=== PATIENT | female | born 1995 | race Asian ===

== ENCOUNTER 2016-12-07 17:45 | Emergency (ER) | payer OTHER ==
[~2016-12-07] VITALS: Ht 147.3 cm; Wt 52.6 kg
[~2016-12-07 17:45] MED LIST: PROMETHAZINE HC25 M3 PO; VICODIN5-300 PO; ZANTAC150 M1 PO; ZOFRAN4 M1 SL
[2016-12-07] MEDS ORDERED: PRENATAL TABLE1 EAC2 PO (18:12)
[2016-12-07 18:49] LABS: ABSOLUTE BASOPHIL COUNT 0 /CUMM (0.0-0.2); ABSOLUTE EOSINOPHIL COUNT 0 /CUMM (0.0-0.7); ABSOLUTE GRANULOCYTE CT 7.5 /CUMM (1.4-6.5); ABSOLUTE LYMPH COUNT 1.3 /CUMM (1.2-3.4); ABSOLUTE MONOCYTE COUNT 0.5 /CUMM (0.10-0.60); BASOPHIL % 0.4 % (0.0-2.0); EOSINOPHIL % 0.4 % (0-5); GRANULOCYTE % 80.6 % (42.2-75.2); HEMATOCRIT 32.4 % (37-47); MEAN CORPUSCULAR HGB 30.5 PG (27.0-31.0); MEAN CORPUSCULAR VOLUME 89.9 FL (81.0-99.0); MEAN PLATELET VOLUME 8.4 FL (7.4-10.4); PLATELET COUNT 252 /CUMM (130-400); RBC DISTRIBUTION WIDTH 13.4 % (11.5-14.5); RED BLOOD CELL CT 3.61 /CUMM (4.20-5.40); WHITE BLOOD CELL COUNT 9.3 /CUMM (4.8-10.8)
--- NOTE | 2016-12-07 20:01 | ED CARDIAC/CP/PALPITATIONS ---
History of Present Illness General Chief Complaint: General Adult Stated Complaint: "IM SHORT OF BREATH AND CHEST PAIN" Source: patient, family Exam Limitations: no limitations Vital Signs & Intake/Output Vital Signs & Intake/Output Vital Signs Date Time Temp Pulse Resp B/P Pulse O2 O2 Flow FiO2 Ox Delivery Rate 12/08 0105 98.4 108 20 113/82 97 Room Air 12/08 0040 20 97 Room Air 12/07 2334 98.3 103 16 106/57 99 Room Air 12/07 2305 100 Room Air 12/07 2028 113 24 88 Room Air 12/07 2019 108 18 100 Room Air 12/07 1904 98.7 103 20 125/73 96 Room Air 12/07 1752 98.4 114 18 119/78 96 Room Air ED Intake and Output 12/08 0000 12/07 1200 Intake Total Output Total Balance Patient 116 lb Weight Allergies Coded Allergies: shrimp (NOT FULLY COOKED - HIVES 12/07/16) Reconcile Medications Vit No.130/Iron/FA ( Tablet) 27 MG IRON-800 MCG TABLET 1 TAB PO DAILY SUPPLEMENT (Reported) Triage Note: PT STATES SHE HAS SOB AND STATES SHE IS 25 WEEKS . PT STATES SHE CALLED HER OBGYN AND HE TOLD HER THAT IT WAS NORMAL BECAUSE HER UTERUS IS GROWNING. TODAY WHEN SHE CALLED TO TELL HIM IT GOT WORSE WHEN SHE LAYED DOWN HE TOLD HER THAT WAS NOT NORMAL AND THAT SHE SHOULD COME TO THE ED. Triage Nurses Notes Reviewed? yes : Yes Patient currently breastfeeds: No HPI: 21 yo F @ 25 wks presenting with shortness of breath, chest pain. Progressive shortness of breath for the past week, constant, worse with ambulation, partially relieved by lying down or on left side. Chest tightness for the past week, constant, mild intensity, tightness sensation in precordium, non-exertional, non-pleuritic, unclear precipitating/palliating factors. Denies associated fevers, chills, cough, wheezing, palpitations, LE pain/swelling, N/V, dizziness or neurologic Sx. (+) movmeent, denies AP, vaginal discharge, vaginal bleeding, urinary Sx. (PATIENCE TUCKER,CHANG) Past History Travel History Traveled to No past 21 day No Medical History Any Pertinent Medical History? 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 No (CHANG MORIN MD) Review of Systems Review of Systems Constitutional: Denies: chills, fever, malaise, weakness. EENTM: Reports: no symptoms. Respiratory: Reports: short of breath. Denies: cough, hemoptysis, sputum production, wheezing. Cardiovascular: Reports: chest pain. Denies: edema, orthopena, palpitations, peripheral edema, syncope. GI: Reports: no symptoms. Genitourinary: Reports: no symptoms. Musculoskeletal: Reports: no symptoms. Skin: Reports: no symptoms. Neurological/Psychological: Reports: no symptoms. Hematologic/Endocrine: Reports: no symptoms. Immunologic/Allergic: Reports: no symptoms. All Other Systems: Reviewed and Negative (PATIENCE TUCKER,CHANG) Physical Exam Physical Exam General Appearance: well developed/nourished, no apparent distress, alert, awake , anxious Head: atraumatic, normal appearance Eyes: Bilateral: normal appearance. Ears, Nose, Throat: normal ENT inspection Neck: supple, full range of motion Respiratory: normal breath sounds, chest non-tender, no respiratory distress Cardiovascular: normal peripheral pulses, tachycardia Gastrointestinal: normal bowel sounds, soft, non-tender, distention, Gravid Back: normal inspection, normal range of motion Extremities: No BLE edema or TTP Neurologic/Psych: awake, alert, oriented x 3 Skin: intact Core Measures ACS in differential dx? Yes Severe Sepsis Present: No Septic Shock Present: No (CHANG MORIN MD) Progress Differential Diagnosis: CHF/pulm edema, pericarditis, pneumonia, pneumothorax, pulmonary embolism, Thoracic cavity compression Plan of Care: Orders Procedure Date/time Status URINALYSIS 12/07 2019 Complete TROPONIN LEVEL 12/07 180 Complete D-DIMER 12/07 1806 Complete COMPREHENSIVE METABOLIC PANEL 12/07 1806 Complete CBC WITHOUT DIFFERENTIAL 12/07 1806 Complete EKG 12/07 1747 Active Laboratory Tests 12/07/162024: Urinalysis LIGHT H, Urine Color YEL, Urine Clarity CLEAR, Urine pH 6.5, Ur Specific [place] 1.010, Urine Protein NEG, Urine Ketones NEG, Urine Nitrite NEG, Urine Bilirubin NEG, Urine Urobilinogen 0.2, Ur Leukocyte Esterase MOD H, Ur Microscopic SEDIMENT EXAMINED, Urine RBC 3-5, Ur Epithelial Cells MOD H, Urine Hemoglobin NEG, Urine Glucose >=1000 H 12/07/16 1848: Acetaminophen Cancelled 12/07/16 1807: Anion Gap 10, Estimated GFR > 60, BUN/Creatinine Ratio 10.0, Glucose 124 H, Calcium 8.6, Total Bilirubin 0.3, AST 16, ALT 24, Alkaline Phosphatase 57, Troponin I < 0.01, Total Protein 6.4, Albumin 3.4 L, Globulin 3.0, Albumin/ Globulin Ratio 1.1, D-Dimer 465 H, CBC w Diff NO MAN DIFF REQ, RBC 3.61 L, MCV 89.9, MCH 30.5, RDW 13.4, MPV 8.4, Gran % 80.6 H, Lymphocytes % 13.7 L, Monocytes % 4.9, Eosinophils % 0.4, Basophils % 0.4, Absolute Granulocytes 7.5 H, Absolute Lymphocytes 1.3, Absolute Monocytes 0.5, Absolute Eosinophils 0, Absolute Basophils 0, PUBS MCHC 34.0 Physician MDM: 21 yo F presenting with chest pain, SOB x 1 week. Tachycardic in low 100s during exam, saturating well on RA, pulmonary and BLE exam unremarkable. DDx: Thoracic compression 2/2 gravid uterus vs. PE, less like PTX, PNA, pericarditis, ACS. ECG with STD in V1, V2, similar to previous. Bedside ECHO with grossly normal EF, no pericardial effusion, normal aortic root measurements, LV>RV (no evidence of right heart strain, TAPSE 2.2). Lung U/S with bilateral lung sliding, no B-lines. Abdominal U/S with (+) movement and FHR. Discussed testing for PE with patient and , patient and would like to avoid CTA given overall low concern for PE on part of ED team, will hold D-Dimer given low utility in . Plan for CBC, BMP, troponin, if unremarkable, D/C with OBGYN f/u in the next 2-3 days and outpatient BLE doppers to further decrease probabiloty of PE. D/W Dr. Matias. (PATIENCE TUCKER,CHANG) 8:19 PM O2 SAT 88 % WITH AMBULATION, HR 111. FEELS VERY SOB WITH EXERTION. DR MCLEAN PAGED. 8:45 PM D/W DR FARRAR WHO AGREES WITH PE WORKUP. RADIOLOGY INFORMED TO PERFORM CXR. 12/07/2016 10:50:[address] angiogram is negative for pulmonary embolism. Patient's heart rate still is 115 on the monitor and she still feels short of breath. Normal saline bolus ordered. 12/08/2016 12:47:16 AM Patient feeling better after a liter of fluid. Heart rate is in the low 100s. Sats are 97% with examination. CT injury is negative for PE. (LAURENT TUCKER,ZUNILDA) Initial ED EKG: normal sinus rhythm, nonspecific ST T wave chg (PATIENCE TUCKER,CHANG) Diagnostic Imaging: Viewed by Me: Radiology Read, CT Scan. Discussed w/RAD: Radiology Read, CT Scan. Radiology Impression: PATIENT: CHINEDU LARA PRESENT AGE: 21 PATIENT ACCOUNT NO: [id number] : 95 LOCATION: [facility] ORDERING PHYSICIAN: ZUNILDA MATIAS MD SERVICE DATE: 12/07/16 EXAM TYPE: CAT - CTA CHEST-PULMONARY EMBOLISM EXAMINATION: CT ANGIOGRAM OF THE CHEST WITH AND WITHOUT CONTRAST (CT PULMONARY ANGIOGRAM FOR PE) CLINICAL INFORMATION: Reason for Study:
Presumptive Dx: R/O PE
Signs Symptoms: , 88 % SAT WITH EXERTION, TACHYCARDIC
COMPARISON: Chest radiography earlier today. TECHNIQUE: Prior to contrast administration, noncontrast localization images were obtained. Subsequently, multidetector volumetric imaging was performed from the thoracic inlet to below the diaphragms following the administration of 120 mL Omnipaque 350 intravenous contrast. No contrast reaction reported Sagittal, coronal, and MIP oblique sagittal reformatted images were obtained on the CT workstation, uploaded to PACS, and reviewed. Total exam dose-length product 264 mGy-cm FINDINGS: QUALITY OF STUDY/CONTRAST BOLUS: Satisfactory. PULMONARY ARTERIES: No central or segmental pulmonary emboli. Respiratory motion somewhat precludes optimal evaluation of subsegmental pulmonary emboli. THORACIC AORTA: No aneurysm or dissection. LUNG: No lobar consolidation suspicious for pneumonia. Subtle groundglass opacification at the bilateral lower lungs likely represents sequela of pulmonary hypoexpansion and respiratory motion. No evidence of pulmonary edema. PLEURA: No pleural effusion or pneumothorax. MEDIASTINUM: Normal heart size. No pericardial effusion. No hilar or mediastinal lymphadenopathy. No evidence of septal bowing or right heart strain. CHEST WALL/AXILLA: No axillary or internal mammary lymphadenopathy. OSSEOUS STRUCTURES: No acute or suspicious osseous abnormality. UPPER ABDOMEN: Unremarkable. No reflux of contrast into the hepatic veins to suggest elevated right heart pressures. IMPRESSION: 1. No pulmonary embolism demonstrated. Respiratory motion somewhat precludes optimal evaluation of subsegmental pulmonary emboli. 2. No significant pulmonary pathology demonstrated. The subtle bibasilar groundglass opacification is favored to represent sequela of lung hypoexpansion and respiratory motion. 3. No convincing CT explanation for the patient's oxygen desaturations. VTE: Negative DICTATED BY: JANA OCAMPO MD DATE/TIME DICTATED:12/07/162234 PARTS FABRICATOR:HUI DATE/TIME TRANSCRIBED:12/07/162234 CONFIDENTIAL, DO NOT COPY WITHOUT APPROPRIATE AUTHORIZATION. <Electronically signed in Other Vendor System> SIGNED BY: JANA OCAMPO MD 12/07/162243 CXR Impression: PATIENT: CHINEDU LARA PRESENT AGE: 21 PATIENT ACCOUNT NO: [id number] : 95 LOCATION: [facility] ORDERING PHYSICIAN: ZUNILDA MATIAS MD SERVICE DATE: 12/07/16 EXAM TYPE: RAD - XRY -CHEST XRAY, PA AND LATERAL EXAMINATION: XR CHEST CLINICAL INFORMATION: Chest pain. Tachycardia. Hypoxia. COMPARISON: Chest radiography 11/03/2012. TECHNIQUE: 2 views of the chest were obtained. FINDINGS: No new significant abnormality is noted involving the heart, lungs, mediastinum, bony thorax or soft tissues. The lateral radiograph is hypoexpanded. IMPRESSION: No acute pulmonary pathology demonstrated. DICTATED BY: JANA OCAMPO MD DATE/TIME DICTATED:12/07/162137 PARTS FABRICATOR:HUI DATE/TIME TRANSCRIBED:12/07/162137 CONFIDENTIAL, DO NOT COPY WITHOUT APPROPRIATE AUTHORIZATION. <Electronically signed in Other Vendor System> SIGNED BY: JANA OCAMPO MD 12/07/162142 (ZUNILDA MATIAS MD) Departure Departure Disposition: HOME OR SELF CARE Condition: Stable Clinical Impression Primary Impression: Chest pain Qualifiers: Chest pain type: other chest pain Qualified Code: R07.89 - Other chest pain Secondary Impressions: Shortness of breath Referrals: TATI SNELL PA-C (PCP/Family) Departure Forms: Customer Survey General Discharge Information (PATIENCE TUCKER,CHANG) Departure Time of Disposition: 0100 Additional Instructions: Drink plenty of fluids and please follow-up with Dr. Farrar this week in the office. Return to the ER for any changing or worsening symptoms. (ZUNILDA MATIAS MD) Critical Care Note Critical Care Note Critical Care Time: non-applicable (PATIENCE TUCKER,CHANG)
--- NOTE | 2016-12-07 21:43 | RADIOLOGY REPORT ---
EXAMINATION: XR CHEST CLINICAL INFORMATION: Chest pain. Tachycardia. Hypoxia. COMPARISON: Chest radiography 11/03/2012. TECHNIQUE: 2 views of the chest were obtained. FINDINGS: No new significant abnormality is noted involving the heart, lungs, mediastinum, bony thorax or soft tissues. The lateral radiograph is hypoexpanded. IMPRESSION: No acute pulmonary pathology demonstrated.
--- NOTE | 2016-12-07 22:44 | CT SCAN REPORT ---
EXAMINATION: CT ANGIOGRAM OF THE CHEST WITH AND WITHOUT CONTRAST (CT PULMONARY ANGIOGRAM FOR PE) CLINICAL INFORMATION: Reason for Study:
Presumptive Dx: R/O PE
Signs Symptoms: , 88 % SAT WITH EXERTION, TACHYCARDIC
COMPARISON: Chest radiography earlier today. TECHNIQUE: Prior to contrast administration, noncontrast localization images were obtained. Subsequently, multidetector volumetric imaging was performed from the thoracic inlet to below the diaphragms following the administration of 120 mL Omnipaque 350 intravenous contrast. No contrast reaction reported Sagittal, coronal, and MIP oblique sagittal reformatted images were obtained on the CT workstation, uploaded to PACS, and reviewed. Total exam dose-length product 264 mGy-cm FINDINGS: QUALITY OF STUDY/CONTRAST BOLUS: Satisfactory. PULMONARY ARTERIES: No central or segmental pulmonary emboli. Respiratory motion somewhat precludes optimal evaluation of subsegmental pulmonary emboli. THORACIC AORTA: No aneurysm or dissection. LUNG: No lobar consolidation suspicious for pneumonia. Subtle groundglass opacification at the bilateral lower lungs likely represents sequela of pulmonary hypoexpansion and respiratory motion. No evidence of pulmonary edema. PLEURA: No pleural effusion or pneumothorax. MEDIASTINUM: Normal heart size. No pericardial effusion. No hilar or mediastinal lymphadenopathy. No evidence of septal bowing or right heart strain. CHEST WALL/AXILLA: No axillary or internal mammary lymphadenopathy. OSSEOUS STRUCTURES: No acute or suspicious osseous abnormality. UPPER ABDOMEN: Unremarkable. No reflux of contrast into the hepatic veins to suggest elevated right heart pressures. IMPRESSION: 1. No pulmonary embolism demonstrated. Respiratory motion somewhat precludes optimal evaluation of subsegmental pulmonary emboli. 2. No significant pulmonary pathology demonstrated. The subtle bibasilar groundglass opacification is favored to represent sequela of lung hypoexpansion and respiratory motion. 3. No convincing CT explanation for the patient's oxygen desaturations. VTE: Negative
[2016-12-08 01:05] VITALS: BP 113/82
== END 2016-12-08 01:06 ==
LOC: ERH 17:45
PROVIDERS: Physician Assistant Medical
DX: O26.92 Pregnancy related conditions, unspecified, second trimester (principal); R07.9 Chest pain, unspecified; R06.02 Shortness of breath; Z3A.25 25 weeks gestation of pregnancy
CPT/HCPCS: 81001; 93005; 93010; 96360; 96361; G0480

== ENCOUNTER 2017-03-19 22:49 | Inpatient (IN) | payer OTHER ==
[~2017-03-19] VITALS: Ht 147.3 cm; Wt 59.9 kg
[~2017-03-19 22:49] MED LIST changes: +PRENATAL TABLE1 EAC2 PO
[2017-03-20 00:39] LABS: ABSOLUTE BASOPHIL COUNT 0 /CUMM (0.0-0.2); ABSOLUTE EOSINOPHIL COUNT 0 /CUMM (0.0-0.7); ABSOLUTE GRANULOCYTE CT 6.4 /CUMM (1.4-6.5); ABSOLUTE LYMPH COUNT 1.6 /CUMM (1.2-3.4); ABSOLUTE MONOCYTE COUNT 0.9 /CUMM (0.10-0.60); BASOPHIL % 0.3 % (0.0-2.0); EOSINOPHIL % 0.4 % (0-5); HEMATOCRIT 33.8 % (37-47); MEAN CORPUSCULAR HGB 25.3 PG (27.0-31.0); MEAN CORPUSCULAR HGB CONC 32.6 G/DL (33.0-37.0); MEAN CORPUSCULAR VOLUME 77.6 FL (81.0-99.0); MEAN PLATELET VOLUME 8.6 FL (7.4-10.4); PLATELET COUNT 234 /CUMM (130-400); RED BLOOD CELL CT 4.35 /CUMM (4.20-5.40)
[2017-03-20 06:51] VITALS: BP 125/78
--- NOTE | 2017-03-20 12:30 | History & Physical ---
General Information and HPI MD Statement: I have seen and personally examined PEYMAN LARA and documented this H&P. The patient is a 21 year old female at 39[] weeks and 5[] days gestation who presented with a chief complaint of []. Contractions. 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 Last Menstrual Period: Unknown Past credit administration manager History: none Medical History Neurological: NONE EENT: NONE Cardiovascular: NONE Respiratory: NONE Gastrointestinal: NONE Hepatic: NONE Renal: NONE Musculoskeletal: BURN LEG Psychiatric: NONE Endocrine: NONE Blood Disorders: NONE Cancer(s): NONE ENGINEER TECHNICAL STAFF/Reproductive: NONE Surgical History Pertinent Surgical History: non-contributory Past Family/Social History Psychosocial History Smoking Status: Never Smoked Review of Systems Review of Systems: -13 point review of systems as stated in the HPI Exam & Diagnostic Data Last 24 Hrs of Vital Signs/I&O Vital Signs Date Time Temp Pulse Resp B/P B/P Pulse O2 O2 Flow FiO2 Mean Ox Delivery Rate / 0651 125/78 Intake & Output 03/20 1600 / 0800 06/ 0000 Intake Total Output Total Balance Patient 132 lb Weight Obstetric Exam Wgt Gained During : 23 Pelvimetry: Untested Dilation (cm): 4 Effacement (%): 100 Station: 0 Membranes: intact Fluid: bloody show Fundal Height (cm): 39 Multiple Gestation? No Contractions: q 3 minutes Patient for Induction? No Labs Blood Type & Rh: O+ Antibody Screen: neg Hct/Hgb & Platelets #1: Hct/Hgb & Platelets #2: Rubella: nr VDRL #1: nr VDRL #2: nr HbsAg: neg HIV #1: neg HIV #2 neg 1 Hr P Group B Strep: neg Initial Ultrasound: nl Anatomy Ultrasound: nl Genetic Testing: neg Assessment/Plan Assessment/Plan: assessterm early labor plan observe for pt wants epidural pitocin if ctx decrease As Ranked By This Provider Problem List: 1. Core Measures/Miscellaneous Venous Thromboembolism VTE Risk Factors: / VTE Contraindications: No Contraindications VTE Diagnosis: No Beta Qing Is Beta Qing a Home Med? No Antibiotics Is Patient on Antibiotics? No
--- NOTE | 2017-03-20 12:33 | PN- Obstetrical ---
Subjective Subjective: Patient has an epidural she is on Pitocin she had SROM bloody fluid Objective Last 24 Hrs of Vital Signs/I&O Vital Signs Date Time Temp Pulse Resp B/P B/P Pulse O2 O2 Flow FiO2 Mean Ox Delivery Rate 03/20 0651 125/78 Intake & Output 03/20 1600 03/20 0800 06 0000 Intake Total Output Total Balance Patient 132 lb Weight Physical Exam: Pleasant female HEENT anicteric Abdomen soft tubing contractions estimated weight 3600 g Obstetric Exam Dilation (cm): 8 Effacement (%): 90 (swollem anterior lip) Station: 0 Membranes: SROM Fluid: bloody show Multiple Gestation? No Contractions: q 6 minutes Assessment/Plan Assessment/Plan Assessment is term labor swollen cervix plan observation discontinue Pitocin enteral IV to decrease swelling cervix close observation for normal spontaneous vaginal delivery
--- NOTE | 2017-03-20 15:48 | Labor & Delivery Summary ---
Delivery Summary Vaginal Delivery: Vaginal: vertex : : vacuum (POOR MATERNAL EFFORT) Episiotomy/Lacerations: Episiotomy/Lacerations: MIDLINE Placenta: Placenta: spontanteous, normal, 3 vessel Anesthesia: block, LOCAL Apgars - 1 Min: 8 Apgars - 5 Min: 9
[2017-03-21 08:41] LABS: ABSOLUTE EOSINOPHIL COUNT 0.1 /CUMM (0.0-0.7); MEAN CORPUSCULAR VOLUME 78.8 FL (81.0-99.0)
[2017-03-21 09:10] LABS: ABSOLUTE BASOPHIL COUNT 0 /CUMM (0.0-0.2); ABSOLUTE GRANULOCYTE CT 12.2 /CUMM (1.4-6.5); ABSOLUTE LYMPH COUNT 2.3 /CUMM (1.2-3.4); BASOPHIL % 0.2 % (0.0-2.0); EOSINOPHIL % 0.6 % (0-5); GRANULOCYTE % 78.2 % (42.2-75.2); MEAN CORPUSCULAR HGB 25.6 PG (27.0-31.0); MEAN CORPUSCULAR HGB CONC 32.5 G/DL (33.0-37.0); MEAN PLATELET VOLUME 8.4 FL (7.4-10.4); PLATELET COUNT 216 /CUMM (130-400); RBC DISTRIBUTION WIDTH 16.8 % (11.5-14.5); RED BLOOD CELL CT 3.62 /CUMM (4.20-5.40)
[2017-03-21 09:22] LABS: HEMATOCRIT 28.5 % (37-47); WHITE BLOOD CELL COUNT 15.6 /CUMM (4.8-10.8)
--- NOTE | 2017-03-21 09:46 | PN- Post Delivery/GYN ---
Subjective Subjective: Doing well overall. Pain is well controlled on PO meds. Does have perineal discomfort due to episiotomy site, however managed with pain meds. Ambulating well. Tolerating PO well. Voiding well. Passing gas, no BM. Minimal bleeding. . Review of Systems: per above Objective Last 24 Hrs of Vital Signs/I&O 97.6 105 16 110/60 99% Physical Exam: NAD RRR CTAB Abd: NT, ND, fundus firm and below umbilicus Ext: minimal edema Last 24 Hrs of Labs/Jeffry: Laboratory Tests 03/21/17 0755: CBC w Diff NO MAN DIFF REQ, RBC 3.62 L, MCV 78.8 L, MCH 25.6 L, RDW 16.8 H, MPV 8.4, Gran % 78.2 H, Lymphocytes % 14.9 L, Monocytes % 6.1, Eosinophils % 0.6, Basophils % 0.2, Absolute Granulocytes 12.2 H, Absolute Lymphocytes 2.3, Absolute Monocytes 1.0 H, Absolute Eosinophils 0.1, Absolute Basophils 0, PUBS MCHC 32.5 L Microbiology 03/20 0945 URINE ROUT: Urine Culture - RES Assessment/Plan Assessment/Plan 21 yo female patient PPD#1 s/p OVD with episiotomy Overall doing well Continue perineal care closely. Continue PO meds for pain control Continue to encourage ambulation Monitor vitals and I/Os Encourage H/H noted. Expected drop, no symptoms. However as hgb below 10, will start on PO iron. All questions answered for patient Problem List: 1. Acute blood loss anemia 2. Status post vacuum-assisted vaginal delivery Attending MD Review Statement Attending Statement Attending MD Statement: examined this patient, discussed with family, reviewed EMR data (avail), discussed with nursing
[2017-03-22] MEDS ORDERED: IBUPROFEN800 M1 PO (09:15)
[2017-03-22] MEDS ORDERED: FERROUS SULFAT325 M2 PO (09:15)
[2017-03-22] MEDS ORDERED: DOCUSATE SODIU100 M3 PO (09:15)
--- NOTE | 2017-03-22 09:39 | PN- Post Delivery/GYN ---
Subjective Subjective: Doing well overall. Pain is well controlled on PO meds. Ambulating well. Tolerating PO well. Voiding well. Passing gas, no BM. Minimal bleeding. . Review of Systems: per above Objective Last 24 Hrs of Vital Signs/I&O WNL Physical Exam: NAD RRR CTAB Abd: NT, ND, fundus below umbilicus Current Medications: Current Medications Sig/Delmis Start time Last Medication Dose Route Stop Time Status Admin Docusate Sodium 100 MG .STK-MED ONE 03/21 1930 DC PO 03/21 193 Docusate Sodium 100 MG DAILY NEEDED PRN 03/20 2330 AC 03/21 PO 1943 Ferrous Sulfate 325 MG DAILY 03/21 1000 AC 03/21 PO 1010 Ibuprofen 800 MG .STK-MED ONE 03/22 0022 DC PO 03/22 0023 Ibuprofen 800 MG .STK-MED ONE 03/21 1833 DC PO 03/21 1834 Ibuprofen 800 MG .STK-MED ONE 03/21 1222 DC PO 03/21 1223 Ibuprofen 800 MG Q6P PRN 03/20 1545 AC 03/22 PO 0633 Oxycodone/ 1 TAB Q3P PRN / 1545 AC 03/22 Acetaminophen PO 0633 Assessment/Plan Assessment/Plan 21 yo female PPD#2 s/p JOIE with episiotomy Patient doing well and stable for discharge Discharge instructions given with precautions. Patient voiced understanding. Asymptomatic from anemia. Rx Given. OK for discharge. Problem List: 1. Acute blood loss anemia 2. Status post vacuum-assisted vaginal delivery Attending Review Statement Attending Statement Attending MD Statement: examined this patient, discussed with family, reviewed EMR data (avail), discussed with nursing
== END 2017-03-22 12:15 | DRG 560 ==
LOC: CBCO 22:49 → GNO 03-20 00:57
PROVIDERS: Specialist; ADMIT Obstetrics & Gynecology
PROC: 0W8NXZZ Division of Female Perineum, External Approach (ICD-10-PCS; principal; 2017-03-20)
PROC: 10D07Z6 Extraction of Products of Conception, Vacuum, Via Natural or Artificial Opening (ICD-10-PCS; principal; 2017-03-20)
DX: O80 Encounter for full-term uncomplicated delivery (principal); Z3A.39 39 weeks gestation of pregnancy; Z37.0 Single live birth; D62 Acute posthemorrhagic anemia
CPT/HCPCS: GNOS; 36415; 81001; 84112; 87086; 88307; G0378; G0463; J1200; J2270; J7120